=== PATIENT | female | born 1980 ===

== ENCOUNTER 2024-10-30 15:21 | Emergency (ER) | payer OTHER, SELFPAY ==
[2024-10-30 15:24] VITALS: BP 131/87
[2024-10-30 17:58] VITALS: BMI 31.8
--- NOTE | 2024-10-30 18:14 | ED.GENMED ---
History of Present Illness
General
Chief Complaint: Back Pain
Source: patient
Exam Limitations: none
Time Seen by Provider: 10/30/24 18:04
Nursing documentation reviewed up to this point in time: agreed with
History of Present Illness
History of Present Illness:
Patient to ED with complaint of severe low back pain. States in June she had a colonoscopy and after procedure developed low back pain She was seen by PCP and placed on flexeril and medrol dose pack. Sent to PT which helped initially. States
she has had pain off an on since. She had MRI which confirms bulging L5. She is scheduled for a nuclear MRI on 11/[address] [facility]. States yesterday pain got worse. Placed on medrol dose pack and Ibuprofen 800mg by pcp without
improvement. Denies fever/chills, n/v/d. No recent illness. No recent trauma. Denies any bowel or bladder issues, no saddle paresthesia, no weakness in extremities. To ED accompanied by spouse.
Past History
Past History
ED Past Medical History: Other (migraines)
ED Past Surgical History:
Review of Systems
Review of Systems
Allergies reviewed?: Yes
All Other Systems: ROS reviewed and negative except as documented in HPI and ROS
Constitutional: Reports no symptoms
EENT: Reports no symptoms
Respiratory: Reports no symptoms
Cardiac: Reports no symptoms
ABD/GI: Reports no symptoms
: Reports no symptoms
Musculoskeletal: Reports back pain (bilateral lower back. No radiation of pain)
Skin: Reports no symptoms
Neurological: Reports no symptoms
Psychiatric: Reports no symptoms
Phy Exam
General Physical Exam
General Presentation: moderate distress
General age: appears stated age
General Skin: warm and dry
General Habitus: normal
General Mental: alert
Reflexes
Reflexes: +3: Left patellar and +3: Right patellar
Musculoskeletal Exam
Musculoskeletal Exam: back pain (Bilateral lower back pain. No radiation of pain. No weakness in extremities. No saddle paresthesia. Ambulatory) and neuro vasc intact
Skin Exam
Skin Exam: normal color, warm/dry and no rash
Psychiatric Exam
Psychiatric Exam: normal mood/affect
Course
Orders/Labs/Results
Orders:
Orders
10/30/24 18:13
Dexamethasone Sod Phosphate [Decadron] 10 mg IV NOW STA
HYDROmorphone [Dilaudid] 0.5 mg IV NOW STA
Ondansetron Injectable [Zofran] 4 mg IV NOW STA
10/30/24 19:48
diazePAM [Valium Injection] 2 mg IV NOW STA
10/30/24 20:38
HYDROmorphone [Dilaudid] 0.25 mg IV NOW STA
Vital Signs
Initial and Last Documented VS:
Initial Vital Signs
Temp Pulse Resp BP Pulse Ox
98.1 F 89 18 131/87 99
10/30/24 15:24 10/30/24 15:24 10/30/24 15:24 10/30/24 15:24 10/30/24 15:24
Last Documented Vital Signs
Temp Pulse Resp BP Pulse Ox
98.1 F 89 18 131/87 99
10/30/24 15:24 10/30/24 15:24 10/30/24 15:24 10/30/24 15:24 10/30/24 15:24
*Critical Care Note
Total Time (30-74mins, 75-104mins- exclusive of procedures): Not Applicable
Update Note
Update Note:
Patient to ED with low back pain not responding to ibuprofen and flexeril. No history of trauma. No radiation of pain, no weakness in extremities. No bowel or bladder issues. No concern for cauda equina. Given Decadron in ED and will continue
prednisone taper at home. SHe is discharged home and will follow upwith PCP, [facility] neurologist as scheduled. Given instructions on s/s to return to ED and she is agreeable to plan.
ED Attending Note
-
Portions of this chart may have been created with voice recognition software.� Occasional wrong word or��sound alike� substitutions may have occurred due to the inherent limitations of voice recognition software.
Discharge Plan
Departure
Patient Disposition: Home (Routine Discharge)
Date of Disposition: 10/30/24
Time of Disposition: 20:38
Patient with high blood pressure during this ER visit?: No
Condition: Good
Covid-19: Not Applicable
Discharge Problem:
Back pain
Instructions: Low Back Pain (DC)
Prescriptions:
New
oxycodone 5 mg capsule
5 mg PO Q4H PRN (Reason: Pain) Qty: 15 0RF
prednisone 10 mg Tablet
See Rx Instructions .ROUTE .COMPLEX Qty: 30 0RF
Rx Instructions:
Take By Mouth:
40 mg daily x3 days, 30 mg daily x3 days,
20 mg daily x3 days, 10 mg daily x3 days.
Referrals:
Devon Mahoney DO [Family Provider] -
Activity Restrictions/Additional Instructions:
Stop the medryl dose pack and start prednisone tomorrow. COntinue taking flexeril at bedtime Apply ice to your back for 15-20 minutes at a time, 4-5 times daily. Follow up with your family doctor on Friday.
Interventions
Interventions:
*Risk Screen - Suicide Last Done: 10/30/24 15:24
*General Assessment Last Done: 10/30/24 15:24
*Neglect/Abuse Screening Last Done: 10/30/24 15:24
*ED- Fall Risk Assessment Last Done: 10/30/24 17:58
*ED COVID-19 Vaccine History Last Done: 10/30/24 17:58
ED-Musculoskeletal Assessment Last Done: 10/30/24 17:58
Discharge Date and Time
Print Language: JAPANESE
Musculoskeletal Injury Exam
Musculoskeletal Injury Exam
Bilateral Lower Back:
Pain with Movement?: Moderate
Tender to palpation?: Moderate
Soft tissue swelling?: None
External deformity and angulation?: None
Joint effusion?: None
Contusion?: None
Hematoma-local bleeding into tissue?: None
Crepitus with movement?: No
Joint instability?: No
Malalignment/deformity?: No
Range of motion: Limited
Distal skin color and temperature: normal-warm & good color
Capillary Refill: normal
Normal distal neurovascular exam?: Yes
[2024-10-30] MEDS: DILAUDID 0.5 MG IV (18:27)
[2024-10-30] MEDS: ZOFRAN 4 MG IV (18:28)
[2024-10-30] MEDS: DECADRON 10 MG IV (18:28)
[2024-10-30] MEDS: VALIUM INJECTION 2 MG IV (19:58)
[2024-10-30] MEDS: DILAUDID 0.25 MG IV (21:21)
== END 2024-10-30 22:06 | disposition home or self-care (01) ==
LOC: EMR 15:21
PROVIDERS: EMERGENCY PHYSICIAN Student in an Organized Health Care Education/Training Program; FAMILY PHYSICIAN Family Medicine; OTHER PHYSICIAN Nurse Practitioner Acute Care
DX: M54.50 Low back pain, unspecified (principal); M51.369 Other intervertebral disc degeneration, lumbar region without mention of lumbar back pain or lower extremity pain; G43.909 Migraine, unspecified, not intractable, without status migrainosus; G89.29 Other chronic pain
CPT/HCPCS: 99284; 96374; 96375 ×3; 96376